=== PATIENT | female | born 1945 | race Caucasian/White ===

== ENCOUNTER → 2016-10-15 | Outpatient (CLI) | payer MEDICARE, OTHER ==
[~2016-10-15] MED LIST: ALLEGRA ALLERG180 MG PO; ALLERGY SHOTS; APAP; BENEFIBER98 GM; CENTRUM SILVER; CRESTOR5 MG; DHEA25 M1 PO; DILTIAZEM ER120 M1; FIBER WELL GUMMIES PO; HYDROCODON-ACE1 EAC2 PO; LASIX20 MG; LIPITOR40 MG PO; LODINE500 MG; LOPRESSOR PO; LOSARTAN POTASS50 MG PO; LUBRICANT; MELATONIN PO; MELATONIN3 MG PO; MIRALAX; MONTELUKAST SOD10 MG PO; NIACIN PO; NORCO 10-325 TA1 TAB PO; ORTHOMEGA PO; PROGESTERONE200 MG PO; PROPOXY N; SENNA; SERTRALINE HCL50 MG; SINGULAIR PO; SYNTHROID PO; TEMOVATE 0.05%15 GM EXT; VERAMYST10 GM; VIMOVO 500-201 EACH PO; VITAMIN B 12 PO; VITAMIN D1000 UNIT PO; VITAMIN D3 PO; VITAMIN D31000 UNIT PO; VITAMIN K 2; VITAMIN K PO; ZOLOFT50 MG; ZYRTEC10 M1 PO; [UNRECOGNIZED DRUG - CODE] PO; [UNRECOGNIZED DRUG - CODE] PO; [UNRECOGNIZED DRUG - OTHER]; [UNRECOGNIZED DRUG - OTHER]; [UNRECOGNIZED DRUG - OTHER] PO; [UNRECOGNIZED DRUG - OTHER] PO
--- NOTE | ~2016-10-15 | CR184 ---
[facility] A Service of [facility] RADIOLOGY TEXT RESULTS PATIENT: GLADYS WAHL LOCATION: [facility] : 47 UNIT #: [id number] AGE: [address]: JASS QUICK APRN SEX: F ORDER DR: [id number] [facility] [address] [place], [place] [address] [id number] O MR#: [id number] Acc #: [id number] NAME: GLADYS WAHL : 1945 SEX: F STUDY DATE/TIME: 10/15/2016 12:42 UNIT: [facility] ROOM: STUDY DESCRIPTION: CR Lumbar Spine Min 4 Views Attending Physician: Jass Quick A.P.R.N. Referring Physician: Jass Quick A.P.R.N. Ordering Physician: Jass Quick A.P.R.N. Primary Care Physician: Klarissa Ortega M.D. MEDICAL IMAGING REPORT This report is preliminary unless electronic signature is present EXAM Lumbar spine minimum 4 views HISTORY 71-year-old female with complaint of low back and right leg pain for 6 months. Laminectomy in 2013. COMMENT AP lateral lumbosacral views lumbar spine reviewed. Additionally, both obliques obtained. Five films submitted. There is a CT scan for comparison from 12/15/2012. Since that time the patient has undergone laminectomy 4-5, 5-1 levels. There is mild lower lumbar levoconvex scoliosis. Loss of intervertebral disc height and vacuum disc formation L1-2 through L5-S1. This is quite severe at 3-4 and 5-1. There is associated multiple level endplate spondylosis. There is about 3.0 mm of anterolisthesis of L4 on L5 and retrolisthesis of L2 on L3. There is lower lumbar facet arthritis. Vascular calcifications are present. There is mild anterior wedging at T12 which is probably chronic. There are atherosclerotic vascular calcifications. IMPRESSION I believe the patient has had laminectomies at L4-5 and L5-S1. There is subtle degenerative anterolisthesis of L4 on L5 and retrolisthesis of L3 on L4. There is multiple level severe degenerative disc disease with endplate spondylosis, loss of disc height and vacuum disc formation. Lower lumbar facet arthritis is present. If the patient is a candidate for an MRI and more information is needed, this is recommended in followup. On comparison to the CT scan from 12/15/2012 postoperative changes are new and there is progression of the degenerative disc disease with worsening loss of intervertebral disc height and endplate spondylosis on comparison to the prior study. Dictated by... [facility] A Service of [facility] RADIOLOGY TEXT RESULTS PATIENT: GLADYS WAHL LOCATION: [facility] : [facility] UNIT #: [id number] AGE: [address]: JASS QUICK APRN SEX: F ORDER DR: Di Martin M.D. THIS IS AN ELECTRONICALLY VERIFIED REPORT Di Martin M.D. at 10/20/2016 5:43 PM Yemi TD: 10/20/2016 14:34 JOB #: [id number] MEDICAL IMAGING REPORT Page 1 of 1 COPY
[2016-10-15 14:45] LABS: POC - GFR >60.0 mL/min (>60)
== END | disposition home or self-care (01) ==
LOC: CMRI 12:21
PROVIDERS: Nurse Practitioner Family
DX: M51.16 Intervertebral disc disorders with radiculopathy, lumbar region (principal); M43.16 Spondylolisthesis, lumbar region; M47.26 Other spondylosis with radiculopathy, lumbar region; Z98.890 Other specified postprocedural states
CPT/HCPCS: 72110; 82565